=== PATIENT | male | born 1980 | race Two or more races ===

== ENCOUNTER 2025-05-16 00:54 | Emergency (ER) | payer OTHER ==
[~2025-05-16] VITALS: Ht 175.3 cm; Wt 79.5 kg
[2025-05-16 01:30] VITALS: TEMP 98.1
[2025-05-16] MEDS: LIDOCAINE 1% 10 ML VIAL ID ONE (03:44)
[2025-05-16 04:23] VITALS: BP 110/88; PULSE 61; RESP 18; O2SAT 97
== END 2025-05-16 05:48 ==
LOC: EMS 00:54
DX: S01.511A Laceration without foreign body of lip, initial encounter (principal); W19.XXXA Unspecified fall, initial encounter; Y93.89 Activity, other specified; Y92.89 Other specified places as the place of occurrence of the external cause; Y99.8 Other external cause status
CPT/HCPCS: 99284; 70450; 12011; J3490